=== PATIENT | female | born 1980 | race Caucasian/White ===

== ENCOUNTER 2018-04-11 00:26 | Inpatient (IN) | payer OTHER ==
[~2018-04-11] VITALS: Ht 162.6 cm; Wt 90.6 kg
[2018-04-11] VITALS (11 sets, daily range): BP systolic 91–134; BP diastolic 51–72; PULSE 69–82; RESP 18–20; Ht 162.6 cm; Wt 90.6 kg
[2018-04-11] MEDS ORDERED: GLIP5TAB13 PO (04:56)
[2018-04-11] MEDS ORDERED: METF500T3 PO (04:57)
[2018-04-11] MEDS ORDERED: CANA300T PO (04:59)
[2018-04-11] MEDS ORDERED: BUPR300T4 PO (04:59)
[2018-04-11] MEDS ORDERED: ESCI20TA38 PO (04:59)
[2018-04-11] MEDS ORDERED: LISI10TA2 PO (05:00)
[2018-04-11] MEDS ORDERED: ALPR0.5T PO (05:01)
[2018-04-11] MEDS ORDERED: VANCOMYCIN HCL 2 GM in SOD CHLORIDE 0.9% 500 ML IVPB SCH (08:00)
[2018-04-11] MEDS: PIPER-TAZO 3.375 GM IV (PMX) 100 ML IVPB SCH ×3 (09:14→21:17)
[2018-04-11] MEDS ORDERED: GLUCOSE GEL 15 GRAM TUBE PO PRN ×2 (10:00)
[2018-04-11] MEDS ORDERED: GLUCOSE GEL 15 GRAM TUBE BUCCAL PRN (10:00)
[2018-04-11] MEDS ORDERED: GLUCAGON 1 MG INJ IM PRN (10:00)
[2018-04-11] MEDS ORDERED: DEXTROSE 50% 50 ML SYRINGE IV PRN ×2 (10:00)
[2018-04-11] MEDS: ESCITALOPRAM 10 MG TAB PO SCH (10:44)
[2018-04-11] MEDS: FAMOTIDINE 20 MG TAB PO SCH ×2 (10:44→20:31)
[2018-04-11] MEDS: DIPHENHYDRAMINE 50 MG CAP PO PRN ×2 (10:45→20:31)
[2018-04-11] MEDS: ALPRAZOLAM 0.5 MG TAB PO SCH ×2 (10:45→20:31)
[2018-04-11] MEDS: LISINOPRIL 10 MG TAB PO SCH (10:46)
[2018-04-11] MEDS ORDERED: VANCOMYCIN 1 GM (PMX) 250 ML IVPB SCH (11:00)
[2018-04-11] MEDS: metFORMIN (XR) 500 MG TAB PO SCH (12:04)
[2018-04-11] MEDS: BUPROPION (XL) 150 MG TAB PO SCH (12:04)
[2018-04-11] MEDS: glipiZIDE 5 MG TAB PO SCH (12:05)
--- NOTE | 2018-04-11 13:28 | HP ---
DATE OF ADMISSION: 04/11/2018 CHIEF COMPLAINT: Hives. HISTORY OF PRESENT ILLNESS: A 37-year-old female with hypertension, type 2 diabetes mellitus, and ronic depression, was transferred from [facility] Emergency Room after she presented with co mplaint of hives involving bilateral upper extremities and torso. The patient was evaluated in the E R several times throughout the last week prior to admission. She REPORTS ALLERGY REACTION TO SULFATE , but denies any food allergies. She denies any chest pain. No cough. No abdominal pain, nausea, o r vomiting. No fevers. Initial evaluation revealed leukocytosis and elevated lactate. The patient met sepsis criteria. How ever, no source of infection was identified. PAST MEDICAL HISTORY: 1. Type 2 diabetes mellitus. 2. Hypertension. 3. Chronic depression. MEDICATIONS PRIOR TO ADMISSION: 1. Xanax. 2. Wellbutrin. 3. Lexapro. 4. Lisinopril. 5. Glipizide. 6. Metformin. 7. Invokana. SOCIAL HISTORY: Patient lives at home. She denies tobacco or alcohol use. She denies any food JORDANA RGIES. DRUG ALLERGIES: SULFA. PHYSICAL EXAMINATION: GENERAL: Well-developed, well-nourished, pleasant female who is in no apparent distress. VITAL SIGNS: Stable. She is afebrile. HEENT: Extraocular muscles intact. Pupils are equal and reactive to light bilaterally. Sclerae are anicteric. Oropharynx is clear and moist. NECK: Supple, no JVD, no carotid bruits. LUNGS: Clear to auscultation bilaterally. CARDIAC: Regular rate and rhythm. No murmurs, rubs or gallops. ABDOMEN: Soft, nontender, nondistended, normoactive bowel sounds. EXTREMITIES: No clubbing, cyanosis, or edema. Mild and faint rash noted on bilateral distal upper e xtremities. Torso, back and lower extremities are clear. NEUROLOGICAL: Nonfocal. LABORATORY DATA: White blood cell count is 17.5, platelet count is 319,000, hemoglobin is 13.1. Bas ic metabolic panel is within normal limits except for a low potassium of 3.4, blood sugar of 52. ASSESSMENT: 1. A 37-year-old female with hives most likely due to some type of food allergy. 2. Elevated lactate, rule out sepsis. 3. Hypertension, well controlled. 4. Type 2 diabetes mellitus. 5. Chronic depression. 6. Anxiety disorder. PLAN: Place in tele observation, continue IV Zosyn, start Benadryl and Pepcid. Check blood culture results from [facility] in a.m. Repeat CBC. Dictated By: JAYESH ORTIZ/SHYAM Conf#: [id number] DID#: [id number]
[2018-04-12] VITALS: PULSE 68
[2018-04-12 04:00] VITALS: BP 104/64; PULSE 68; PULSE 75; RESP 20
[2018-04-12] MEDS: DIPHENHYDRAMINE 50 MG CAP PO PRN (05:11)
[2018-04-12] MEDS: PIPER-TAZO 3.375 GM IV (PMX) 100 ML IVPB SCH ×2 (05:11→14:00)
[2018-04-12 07:16] VITALS: BP 111/66; PULSE 79; RESP 20
[2018-04-12] MEDS: FAMOTIDINE 20 MG TAB PO SCH (08:12)
[2018-04-12] MEDS: ESCITALOPRAM 10 MG TAB PO SCH (08:12)
[2018-04-12] MEDS: metFORMIN (XR) 500 MG TAB PO SCH (08:12)
[2018-04-12] MEDS: BUPROPION (XL) 150 MG TAB PO SCH (08:13)
[2018-04-12] MEDS: glipiZIDE 5 MG TAB PO SCH (08:13)
[2018-04-12] MEDS: LISINOPRIL 10 MG TAB PO SCH (08:13)
[2018-04-12] MEDS: ALPRAZOLAM 0.5 MG TAB PO SCH (08:17)
[2018-04-12 08:57] VITALS: PULSE 79
[2018-04-12] MEDS ORDERED: FAMO20TA18 PO (09:11)
[2018-04-12] MEDS ORDERED: BEN50 PO (09:11)
[2018-04-12] MEDS ORDERED: PRED10TA PO (09:11)
--- NOTE | 2018-04-12 09:21 | PDOCDIS ---
Discharge Instructions DIAGNOSIS Discharge Diagnosis 37-year-old female with allergic dermatitis Leukocytosis with no evidence of infection, resolved Type 2 diabetes mellitus Chronic depression 37-year-old female was transferred from outside emergency room after she presented with complaint of hives involving bilateral upper extremities and torso. Initially, she had leukocytosis and elevated lactate. There was no evidence of infection. Urinalysis was normal and chest x-ray was clear. Patient has been having hives on and off for several weeks. I suspect that she may have developed an allergic reaction to WENDIE inhibitor. I asked her to discontinue this medicine. Patient is in a stable condition for discharge. She was prescribed prednisone with daily taper times 5 days, Pepcid, and Benadryl. She has an appointment with her PCP in a.m. I will arrange follow-up with client care specialist as outpatient. Patient had recurrent hives during hospitalization. However, she remained hemodynamically stable and afebrile. CONDITION [id number] Patient Condition: [id number] Good HOME CARE INSTRUCTIONS: [id number] Special Diet: [id number] diabetic ACTIVITY: [id number] Activity Restrictions: [id number] No Restrictions [id number] Activity Restrictions Comment: [id number] Avoid scratching your skin FOLLOW UP/APPOINTMENTS Follow-up Plan pcp in am client care specialist JAYESH GARCIA MD Apr 12, 2018 09:21
[2018-04-12] MEDS ORDERED: METHYLPREDNISOLONE 125 MG INJ IV ONE (09:30)
[2018-04-12 11:23] VITALS: BP 114/71; PULSE 75; RESP 20
== END 2018-04-12 14:40 | disposition home or self-care (01) | DRG 607 ==
LOC: 6WM 04:06
PROVIDERS: ADMIT Internal Medicine; ATTEND Internal Medicine
DX: L23.3 Allergic contact dermatitis due to drugs in contact with skin (principal); I10 Essential (primary) hypertension; E11.9 Type 2 diabetes mellitus without complications; F32.9 Major depressive disorder, single episode, unspecified; F41.9 Anxiety disorder, unspecified; T46.4X5A Adverse effect of angiotensin-converting-enzyme inhibitors, initial encounter; D72.829 Elevated white blood cell count, unspecified
CPT/HCPCS: 80048; 82962; 85025; J2930; J3370; J7040